=== PATIENT | male | born 1955 | race Caucasian/White ===

== ENCOUNTER 2017-03-18 06:26 | Inpatient (IN) | payer MEDICARE ==
[~2017-03-18] VITALS: Ht 170.2 cm; Wt 74.8 kg
[2017-03-18 06:30] VITALS: BP 124/87; PULSE 101; RESP 18; TEMP 98.9; O2SAT 94
[2017-03-18 07:32] LABS: BASOPHILS % (AUTO) 0.3 % (0.0-2.0); EOSINOPHILS # (AUTO) 0.1 K/uL (0.0-0.4); EOSINOPHILS % (AUTO) 0.5 % (0.0-4.0); HEMOGLOBIN 12.2 g/dL (14.0-18.0); LYMPHOCYTES # (AUTO) 1.1 K/uL (1.0-5.5); LYMPHOCYTES % (AUTO) 6.6 % (20.5-51.5); MEAN CORPUSCULAR HEMOGLOBIN 30 pg (27-31); MEAN CORPUSCULAR HGB CONC 34 % (32-36); MEAN CORPUSCULAR VOLUME 89 fL (79.0-98.0); MONOCYTES # (AUTO) 0.8 K/uL (0.0-1.0); MONOCYTES % (AUTO) 4.9 % (1.7-9.3); NEUTROPHILS # (AUTO) 14.5 K/uL (1.8-7.7); NEUTROPHILS % (AUTO) 87.7 % (40.0-70.0); PLATELET COUNT (AUTO) 246 K/uL (130-430); RED BLOOD CELL COUNT(AUTO) 4.05 MIL/uL (4.2-6.2); RED CELL DISTRIBUTION WIDTH 12.1 % (9.0-15.0); WHITE BLOOD COUNT (AUTO) 16.5 K/uL (4.8-10.8)
[2017-03-18 07:39] LABS: ANION GAP 7 (5-15); CHLORIDE 94 mmol/L (98-107); CREATININE 0.75 mg/dL (0.55-1.30); GLUCOSE 108 mg/dL (70-99); POTASSIUM 4.1 mmol/L (3.5-5.1); SODIUM SERUM 127 mmol/L (136-145); UREA NITROGEN, BLOOD 12 mg/dL (8-21)
[2017-03-18 07:43] LABS: ALANINE AMINOTRANSFERASE 18 U/L (12-78); ALBUMIN 3.9 g/dL (3.4-4.8); ASPARTATE AMINOTRANSFERASE 16 U/L (10-37); CREATINE KINASE, TOTAL 148 U/L (39-308); GFR AFRICAN AMERICAN 135 mL/min (>90); TOTAL BILIRUBIN 1.3 mg/dL (0.0-1.0); TOTAL PROTEIN, SERUM 6.9 g/dL (6.4-8.3)
[2017-03-18 07:44] LABS: INR 1.1 (0.80-1.20); PROTHROMBIN TIME 11.4 SECS (9.5-12.5)
[2017-03-18 07:45] LABS: ALCOHOL, BLOOD < 3 mg/dL (<10)
[2017-03-18 07:53] LABS: ACETAMINOPHEN < 1 ug/mL (1-30); SALICYLATE < 1 mg/dL (3-30)
[2017-03-18 07:56] LABS: BILIRUBIN,URINE NEGATIVE (NEGATIVE); BLOOD, URINE 1+ (NEGATIVE); CLARITY/URINE SL HAZY (CLEAR); COLOR,URINE YELLOW (YELLOW); GLUCOSE,URINE NEGATIVE (NEGATIVE); KETONES,URINE NEGATIVE (NEGATIVE); LEUKOCYTE ESTERASE ,URINE NEGATIVE (NEGATIVE); NITRITE, URINE NEGATIVE (NEGATIVE); PH,URINE 8.5 (5.0-8.0); PROTEIN URINE NEGATIVE (NEGATIVE); UROBILINOGEN,URINE 0.2 (0.2-1.0)
[2017-03-18 08:05] LABS: BACTERIA,URINE RARE /HPF (None Seen); MUCUS,URINE 1+ /LPF (None Seen); WBC,URINE 0-3 /HPF (0-3)
[2017-03-18 08:13] LABS: BARBITURATE, URINE NEGATIVE (NEG <=200); BENZODIAZEPINE, URINE NEGATIVE (NEG <=150); CANNABINOID, URINE NEGATIVE (NEG <=50); COCAINE, URINE NEGATIVE (NEG <=150); METHAMPHETAMINES SCREEN,URINE NEGATIVE (NEG <=500); OPIATE, URINE NEGATIVE (NEG <=100); PHENCYCLIDINE SCREEN,URINE NEGATIVE (NEG <=25); UR TRICYCLIC ANTIDEPRESSANTS NEGATIVE (NEG <=300); URINE AMPHETAMINE NEGATIVE (NEG <=500); URINE METHADONE NEGATIVE (NEG <=200); URINE OXYCODONE SCREEN NEGATIVE (NEG <=100); URINE PROPOXYPHENE SCREEN NEGATIVE (NEG <=300)
[2017-03-18 08:39] LABS: BLOOD GAS BASE EXCESS -0.5 mmol/L (-3.0-3.0); BLOOD GAS PH 7.445 (7.350-7.450)
[2017-03-18 08:40] LABS: ABG TOTAL HEMOGLOBIN 13.1 G/dL (12.0-18.0); BLOOD GAS COHb% 0.3 % (0.5-1.5); BLOOD GAS HHB 12.3 % (0.0-6.0); BLOOD O2Hb% 87.3 % (94.0-97.0)
[2017-03-18] MEDS ORDERED: IPRATROPIUM/ALBUTEROL SULFATE 3 ML AMPUL.NEB INH ONE (08:45)
[2017-03-18] MEDS ORDERED: NACL 0.9% 1,000 ML IV ONE (08:45)
[2017-03-18] MEDS ORDERED: IOHEXOL 350 mgI/mL, 150 ML INFUS..BTL IV ONE (09:27)
[2017-03-18 10:43] VITALS: BP 124/64; PULSE 108; RESP 18; TEMP 98.4; O2SAT 94
[2017-03-18 12:18] VITALS: BP 139/67; PULSE 78; RESP 19; TEMP 97.7; O2SAT 92
[2017-03-18] MEDS ORDERED: LEVE500T13 PO (13:16)
[2017-03-18 15:32] VITALS: BP 135/86; PULSE 94; RESP 19; TEMP 97.6; O2SAT 99
[2017-03-18] MEDS ORDERED: cefTRIAXone 1 GM in D5W 50 ML IV ONE (17:30)
[2017-03-18] MEDS ORDERED: IPRATROPIUM/ALBUTEROL SULFATE 3 ML AMPUL.NEB INH PRN (17:30)
[2017-03-18] MEDS ORDERED: LORazepam 2 MG/ML VIAL IVP PRN (17:30)
[2017-03-18] MEDS ORDERED: ACETAMINOPHEN 650 MG/20.3 ML UDC PO PRN (17:30)
[2017-03-18] MEDS: levETIRAcetam 500 MG TABLET PO SCH ×2 (17:30→20:25)
[2017-03-18] MEDS: NACL 0.9% 1,000 ML IV SCH (17:36)
[2017-03-18 17:46] VITALS: BP 135/86; PULSE 94
[2017-03-18 19:20] VITALS: BP 125/70; PULSE 78; RESP 18; TEMP 98; O2SAT 93
[2017-03-18] MEDS ORDERED: AZITHROMYCIN 500 MG in NS 250 ML IV SCH (21:00)
[2017-03-19] VITALS (7 sets, daily range): BP systolic 91–115; BP diastolic 57–65; PULSE 78–101; RESP 16–18; TEMP 98–99; O2SAT 95–100
[2017-03-19 07:20] LABS: CALCIUM 8.4 mg/dL (8.4-11.0); CREATININE 0.77 mg/dL (0.55-1.30); POTASSIUM 4.1 mmol/L (3.5-5.1)
[2017-03-19 07:38] LABS: BASOPHILS % (AUTO) 0.1 % (0.0-2.0); EOSINOPHILS # (AUTO) 0.1 K/uL (0.0-0.4); EOSINOPHILS % (AUTO) 0.5 % (0.0-4.0); HEMATOCRIT 33.3 % (36-54); HEMOGLOBIN 11.4 g/dL (14.0-18.0); LYMPHOCYTES # (AUTO) 1.4 K/uL (1.0-5.5); LYMPHOCYTES % (AUTO) 8.4 % (20.5-51.5); MEAN CORPUSCULAR HEMOGLOBIN 30 pg (27-31); MEAN CORPUSCULAR HGB CONC 34 % (32-36); MEAN CORPUSCULAR VOLUME 89 fL (79.0-98.0); MONOCYTES # (AUTO) 0.6 K/uL (0.0-1.0); MONOCYTES % (AUTO) 3.8 % (1.7-9.3); NEUTROPHILS % (AUTO) 87.2 % (40.0-70.0); PLATELET COUNT (AUTO) 210 K/uL (130-430); RED BLOOD CELL COUNT(AUTO) 3.76 MIL/uL (4.2-6.2); RED CELL DISTRIBUTION WIDTH 12.6 % (9.0-15.0); WHITE BLOOD COUNT (AUTO) 16.1 K/uL (4.8-10.8)
[2017-03-19] MEDS: NACL 0.9% 1,000 ML IV SCH ×2 (08:36→13:15)
[2017-03-19] MEDS: levETIRAcetam 500 MG TABLET PO SCH (08:36)
[2017-03-19] MEDS ORDERED: cefTRIAXone 1 GM in D5W 50 ML IV SCH (09:00)
[2017-03-19] MEDS: PIPERACILLIN/TAZO 3.375/DEX-IS 50 ML IV SCH ×2 (13:30→17:39)
[2017-03-19] MEDS: IPRATROPIUM/ALBUTEROL SULFATE 3 ML AMPUL.NEB INH SCH ×2 (13:35→20:21)
[2017-03-19] MEDS ORDERED: LACTOBACILLUS RHAMNOSUS GG 1 CAP CAPSULE PO SCH (21:00)
== END 2017-03-19 20:30 | disposition short-term general hospital (02) | DRG 871 ==
LOC: SED 06:26 → STU 10:26
PROVIDERS: ADMIT Internal Medicine; ATTEND Internal Medicine
DX: A41.9 Sepsis, unspecified organism (principal); J18.9 Pneumonia, unspecified organism; J96.01 Acute respiratory failure with hypoxia; G93.41 Metabolic encephalopathy; E87.1 Hypo-osmolality and hyponatremia; G40.909 Epilepsy, unspecified, not intractable, without status epilepticus; K80.20 Calculus of gallbladder without cholecystitis without obstruction; R13.10 Dysphagia, unspecified; F03.90 Unspecified dementia, unspecified severity, without behavioral disturbance, psychotic disturbance, mood disturbance, and anxiety; G20 Parkinson's disease; Z79.899 Other long term (current) drug therapy
CPT/HCPCS: 36415; 36600; 70450-TC; 71010; 71275; 72170-TC; 80048; 80053; 80307; 81000-TC; 82550-TC; 82803-TC; 82962; 83605; 84484; 85025; 85610-TC; 85730-TC; 87040-TC; 93005; 94640; 94760; 96361; 96365; 96366; 99285; G0480; G0481; G0482; J0456; J0696; J1956; J2543; J7030; J7050; J7060; Q9967